=== PATIENT | male | born 1970 | race Caucasian/White ===

== ENCOUNTER 2021-01-22 16:48 | Emergency (ER) | payer OTHER ==
[~2021-01-22] VITALS: Ht 180.3 cm; Wt 80.7 kg
[2021-01-22 17:37] LABS: BASOPHILS ABSOLUTE AUTO 0.11 K/mm3 (0.00-0.23); BASOPHILS PERCENT AUTO 2 % (0-2); EOSINOPHILS ABSOLUTE AUTO 0.03 K/mm3 (0.00-0.68); EOSINOPHILS PERCENT AUTO 1 % (0-6); Hematocrit 45.8 % (37.0-53.0); Hemoglobin 15.9 g/dL (13.5-17.5); IMMATURE GRAN ABSOLUTE AUTO 0.01 K/mm3 (0.00-0.10); IMMATURE GRAN PERCENT AUTO 0 % (0-1); LYMPHOCYTES ABSOLUTE AUTO 1.86 K/mm3 (0.84-5.20); LYMPHOCYTES PERCENT AUTO 28 % (21-46); MONOCYTES ABSOLUTE AUTO 0.43 K/mm3 (0.16-1.47); MONOCYTES PERCENT AUTO 7 % (4-13); Mean Corpuscular HGB 32.9 pg (26.0-34.0); Mean Corpuscular HGB Conc 34.7 g/dL (31.5-36.5); Mean Corpuscular Volume 95 fL (80-100); NEUTROPHILS ABSOLUTE AUTO 4.15 K/mm3 (1.96-9.15); NEUTROPHILS PERCENT AUTO 63 % (41-73); Platelet Count 207 K/mm3 (150-400); RDW Coefficient Variation 12.8 % (11.7-14.2); Red Blood Cell Count 4.83 M/mm3 (4.30-5.90); White Blood Cell Count 6.59 K/mm3 (4.00-11.30)
[2021-01-22 17:50] LABS: Alanine Aminotransfer (ALT/SGP 60 U/L (12-78); Albumin, Blood 4.2 g/dL (3.4-5.0); Albumin/Globulin Ratio 1.2 (0.8-1.8); Alk Phos 78 U/L (50-136); Anion Gap 6 mmol/L (6-16); Aspartate Aminotrans (AST/SGOT 25 U/L (12-37); Bilirubin, Total 0.8 mg/dL (0.1-1.0); Blood Urea Nitrogen 10 mg/dL (8-24); Bun/Creatinine Ratio 9.4 (12.0-20.0); CO2, Blood 26 mmol/L (21-32); Calcium, Blood 9.1 mg/dL (8.5-10.1); Chloride, Blood 106 mmol/L (98-108); Creatinine, Blood 1.06 mg/dL (0.60-1.20); Globulin, Blood 3.6 g/dL (2.2-4.0); Glomerular Filtration Rate >60 (60-); Glucose, Blood 131 mg/dL (70-99); Potassium, Blood 3.9 mmol/L (3.5-5.5); Sodium, Blood 138 mmol/L (136-145); Total Protein, Blood 7.8 g/dL (6.4-8.2)
== END 2021-01-22 20:38 | disposition home or self-care (01) ==
LOC: ER 16:48
PROVIDERS: Physician Assistant
DX: R42 Dizziness and giddiness (principal); R10.10 Upper abdominal pain, unspecified; F43.10 Post-traumatic stress disorder, unspecified; E03.9 Hypothyroidism, unspecified
CPT/HCPCS: 71046; 80053; 85025; 93005; 93010; 99284-25

== ENCOUNTER → 2021-01-27 | Outpatient (CLI) | payer OTHER | LOC: LAB SHORT 14:54 | DX: R53.83 Other fatigue (principal) | CPT/HCPCS: 84443 ==

== ENCOUNTER 2021-09-11 15:45 | Emergency (ER) | payer OTHER ==
[~2021-09-11] VITALS: Ht 180.3 cm; Wt 83.9 kg
== END 2021-09-11 16:39 | disposition home or self-care (01) ==
LOC: ER 15:45
DX: S61.217A Laceration without foreign body of left little finger without damage to nail, initial encounter (principal); E03.9 Hypothyroidism, unspecified; W26.8XXA Contact with other sharp object(s), not elsewhere classified, initial encounter; Z23 Encounter for immunization; Z88.7 Allergy status to serum and vaccine
CPT/HCPCS: 90714